=== PATIENT | female | born 1985 | race Caucasian/White ===

== ENCOUNTER 2018-07-09 12:07 | Outpatient (REF) | payer MEDICAID, SELFPAY ==
[2018-07-09 23:28] LABS: Anion Gap 4.4 mmol/L (3-11); BUN 13 mg/dL (7-18); CO2 31.6 mmol/L (21.0-32.0); CREATININE 0.97 mg/dL (0.55-1.02); Calcium 9.1 mg/dL (8.5-10.1); Chloride 104 mmol/L (98-107); Cholesterol 167 mg/dL (50-200); Glucose 83 mg/dL (70-100); HDL Cholesterol 60 mg/dL (40-60); LDL CHOLESTEROL 99 mg/dL (<100); Potassium 4.2 mmol/L (3.5-5.1); Sodium 140 mmol/L (136-145); Triglyceride 39 mg/dL (30-150)
== END 2018-07-09 12:27 ==
LOC: NCHCN 12:07
PROVIDERS: PCP Family Medicine; Visit Provider Family Medicine
DX: Z13.220 Encounter for screening for lipoid disorders (principal); Z13.1 Encounter for screening for diabetes mellitus
CPT/HCPCS: 80048; 80061; 83721

== ENCOUNTER 2018-09-03 20:35 | Outpatient (REF) | payer MEDICAID, SELFPAY ==
[2018-09-03 20:59] LABS: HCT 42.6 % (36.0-46.0); HGB 14.5 g/dL (12.0-15.5); Mean Corpuscular Hemoglobin 31.1 pg (27.0-33.0); Mean Corpuscular Volume 91.4 fL (80-95); Mean Platelet Volume 11.8 fL (8.0-11.0); Platelet Count 205 x1000/uL (130-400); RBC 4.66 m/cumm (4.00-5.20); White Blood Cell Count 5.77 k/cumm (4.4-10.8)
[2018-09-03 21:08] LABS: TSH (W/Ref FT4) 2.69 uIU/mL (0.358-3.74)
== END 2018-09-03 20:55 ==
LOC: NCHCN 20:35
PROVIDERS: PCP Family Medicine; Visit Provider Family Medicine
DX: R53.83 Other fatigue (principal)
CPT/HCPCS: 85027; 84443

== ENCOUNTER 2019-03-14 12:06 | Outpatient (REF) | payer MEDICAID, SELFPAY ==
--- NOTE | 2019-03-14 09:15 | PAPFT_PTH ---
PATIENT: Ron Oseguera LOC: [facility] U#:[id number] AGE/SX: 33/F ROOM: RE03/14/[address]: Zoë Rhodes : 1985 BED: DIS: 03/14/2019 SPEC #: [id number] RECD: 03/17/19 13:05 STATUS: ALYSSA REMulugeta #: [id number] ELMER: 03/14/19 09:[address]: Zoë Rhodes DEPT: [facility] Cytology RECD BY: Lilo Wei Tissues: 1 - CX/ENDOCX FOR PAP SMEARS Procedures: PAP THIN PREP/[facility] Screening HPV DNA PROBE Comments: [id number]
== END 2019-03-14 12:26 ==
LOC: NCHCN 12:06
PROVIDERS: PCP Family Medicine; Visit Provider Family Medicine
DX: Z12.4 Encounter for screening for malignant neoplasm of cervix (principal); Z11.51 Encounter for screening for human papillomavirus (HPV)
CPT/HCPCS: 88142; 87624

== ENCOUNTER 2024-09-05 16:22 | Outpatient (REF) | payer BC, SELFPAY ==
--- NOTE | 2024-09-05 13:25 | PAPFT_PTH ---
PATIENT: Ron Oseguera LOC: [facility] U#:[id number] AGE/SX: 39/F ROOM: RE09/05/[address]: Zoë Rhodes : 1985 BED: DIS: 09/05/2024 SPEC #: [id number] RECD: 09/08/24 13:05 STATUS: ALYSSA REMulugeta #: [id number] ELMER: 09/05/24 13:[address]: Zoë Rhodes DEPT: [facility] Cytology RECD BY: Lilo Wei Tissues: 1 - CX/ENDOCX FOR PAP SMEARS Procedures: PAP THIN PREP/[facility] Screening HPV DNA PROBE Comments: [id number] (HPV 16 & 18/45)
== END 2024-09-05 16:23 | disposition home or self-care (01) ==
LOC: NCHCN 16:22
PROVIDERS: PCP Family Medicine; Visit Provider Family Medicine
DX: Z11.51 Encounter for screening for human papillomavirus (HPV) (principal); Z01.419 Encounter for gynecological examination (general) (routine) without abnormal findings
CPT/HCPCS: 88142; 87624